=== PATIENT | male | born 1950 | race African-American/Black ===

== ENCOUNTER 2018-12-22 16:23 | Inpatient (IN) ==
[2018-12-22 17:00] LABS: Basophils % 0.2 %; Eosinophils # 0.2 K/mcL (0.0-0.6); Eosinophils % 1.4 %; Hematocrit 36.3 % (37.5-50.1); Hemoglobin 11.5 g/dL (12.9-16.9); Immature Granulocytes % 0.5 % (0-4); Lymphocytes # 1.7 K/mcL (0.6-4.6); Lymphocytes % 14.1 %; Mean Corpuscular HGB Conc 31.7 g/dL (31.6-35.5); Mean Corpuscular Hemoglobin 29.3 pg (28.0-33.3); Mean Corpuscular Volume 92.6 fL (83.0-100.0); Mean Platelet Volume 9.5 fL (9.4-12.4); Monocytes # 0.9 K/mcL (0.0-1.3); Monocytes % 7.9 %; Platelet Count 185 K/mcL (140-400); Red Blood Count 3.92 M/mcL (4.19-5.50); Red Cell Distribution Width 13.6 % (11.5-14.5); Segmented Neutrophils % 75.9 %; White Blood Count 11.9 K/mcL (4.3-11.1)
[2018-12-22 17:08] LABS: Prothrombin Time 11.3 Seconds (9.4-12.1)
[2018-12-22 17:21] LABS: BUN/Creatinine Ratio 24 (6-26); Blood Urea Nitrogen 25 mg/dL (8-23); Carbon Dioxide 26 mEq/L (23-29); Chloride 108 mEq/L (98-107); Glucose 174 mg/dL (70-105); Osmolality,Calculated 291 (280-300); Potassium 5.7 mEq/L (3.5-5.1); Sodium 136 mEq/L (136-145); eGFR For African Americans > 60 (> 60); eGFR For Non-African Americans > 60 (> 60)
[2018-12-22] MEDS ORDERED: Ondansetron 4 MG/2 ML VIAL IVP PRN (17:32)
[2018-12-22] MEDS ORDERED: Naloxone 0.4 MG/ML INJ IVP PRN (17:32)
[2018-12-22] MEDS ORDERED: Acetaminophen 325 MG TABLET PO PRN (17:34)
[2018-12-22] MEDS ORDERED: amLODIPine 5 MG TABLET PO PRN (17:34)
[2018-12-22] MEDS ORDERED: *HR* Dextrose 50 % in Water (Syg) 50 ML SYRINGE IVP PRN (17:35)
[2018-12-22] MEDS ORDERED: D5% in Water 1,000 ML IVC PRN (17:35)
[2018-12-22] MEDS ORDERED: Dextrose Gel 15 GM/37.5 ML TUBE PO PRN ×2 (17:35)
[2018-12-22] MEDS: 0.9 % Sodium Chloride 1,000 ML IVC SCH (19:50)
[2018-12-22] MEDS: Nicotine 21 MG PATCH.TD24 TD SCH (19:51)
[2018-12-22] MEDS: *HR* Heparin 5,000 UNIT/ML VIAL SQ SCH (19:55)
[2018-12-22] MEDS: Sennosides/Docusate Sodium TABLET PO SCH (19:55)
[2018-12-22] MEDS: levETIRAcetam 250 MG TABLET PO SCH (19:56)
[2018-12-22] MEDS: Melatonin 3 MG TABLET PO SCH (20:02)
[2018-12-22] MEDS: Magnesium Oxide 400 MG TABLET PO SCH (20:03)
[2018-12-22] MEDS: Insulin LISPRO 300 UNITS/3 ML VIAL SQ SCH (20:03)
[2018-12-22] MEDS: Insulin DETEMIR 100 UNIT/ML X5UNITS SQ SCH (20:03)
[2018-12-23] MEDS: *HR* Heparin 5,000 UNIT/ML VIAL SQ SCH ×2 (00:53→18:01)
[2018-12-23 07:03] LABS: Basophils % 0.4 %; Eosinophils # 0.3 K/mcL (0.0-0.6); Eosinophils % 2.6 %; Hematocrit 33.6 % (37.5-50.1); Hemoglobin 10.9 g/dL (12.9-16.9); Immature Granulocytes % 0.3 % (0-4); Lymphocytes # 1.1 K/mcL (0.6-4.6); Lymphocytes % 10.5 %; Mean Corpuscular HGB Conc 32.4 g/dL (31.6-35.5); Mean Corpuscular Hemoglobin 29.1 pg (28.0-33.3); Mean Corpuscular Volume 89.8 fL (83.0-100.0); Mean Platelet Volume 9.9 fL (9.4-12.4); Monocytes # 0.8 K/mcL (0.0-1.3); Monocytes % 7.7 %; Neutrophils # 8.5 K/mcL (1.6-8.9); Platelet Count 184 K/mcL (140-400); Red Blood Count 3.74 M/mcL (4.19-5.50); Red Cell Distribution Width 13.6 % (11.5-14.5); Segmented Neutrophils % 78.5 %; White Blood Count 10.8 K/mcL (4.3-11.1)
[2018-12-23 07:19] LABS: BUN/Creatinine Ratio 25 (6-26); Blood Urea Nitrogen 25 mg/dL (8-23); Calcium 9.5 mg/dL (8.6-10.3); Carbon Dioxide 25 mEq/L (23-29); Chloride 106 mEq/L (98-107); Glucose 301 mg/dL (70-105); Magnesium 2.3 mg/dL (1.6-2.6); Osmolality,Calculated 298 (280-300); Sodium 136 mEq/L (136-145); eGFR For African Americans > 60 (> 60); eGFR For Non-African Americans > 60 (> 60)
[2018-12-23 08:57] LABS: Bilirubin,Urine Negative (Negative); Blood,Urine Negative (Negative); Clarity,Urine Clear (Clear); Color,Urine Yellow (Yellow); Glucose,Urine (UA) >=1000 mg/dL (Normal); Ketones,Urine Trace mg/dL (Negative); Leukocyte Esterase,Urine Negative (Negative); Nitrite,Urine Negative (Negative); Protein,Urine Trace mg/dL (Neg-Trace); Specific Gravity,Urine 1.021 (1.010-1.025); Urobilinogen,Urine Normal (Normal)
[2018-12-23] MEDS: levETIRAcetam 250 MG TABLET PO SCH ×2 (08:57→20:06)
[2018-12-23] MEDS: 0.9 % Sodium Chloride 1,000 ML IVC SCH ×2 (08:58→23:40)
[2018-12-23] MEDS: Nicotine 21 MG PATCH.TD24 TD SCH (08:58)
[2018-12-23] MEDS: Insulin LISPRO 300 UNITS/3 ML VIAL SQ SCH ×4 (08:59→23:39)
[2018-12-23] MEDS: Cholecalciferol (D-3) 1,000 UNIT (25MCG) TABLET PO SCH (09:01)
[2018-12-23] MEDS: Latanoprost 2.5 ML BOTTLE BOTH EYES SCH (09:01)
[2018-12-23] MEDS: Aspirin 81 MG TAB.CHEW PO SCH (09:01)
[2018-12-23] MEDS: Magnesium Oxide 400 MG TABLET PO SCH ×2 (09:01→20:06)
[2018-12-23] MEDS: Insulin DETEMIR 100 UNIT/ML X5UNITS SQ SCH ×2 (09:28→23:40)
[2018-12-23] MEDS: Melatonin 3 MG TABLET PO SCH (20:06)
[2018-12-23] MEDS: Sennosides/Docusate Sodium TABLET PO SCH (20:06)
[2018-12-24] MEDS: *HR* Heparin 5,000 UNIT/ML VIAL SQ SCH ×2 (04:22→18:22)
[2018-12-24 05:10] LABS: Basophils # 0.1 K/mcL (0.0-0.2); Basophils % 0.5 %; Eosinophils # 0.5 K/mcL (0.0-0.6); Eosinophils % 4.1 %; Hematocrit 32.4 % (37.5-50.1); Hemoglobin 10.4 g/dL (12.9-16.9); Immature Granulocytes % 0.3 % (0-4); Lymphocytes # 1.9 K/mcL (0.6-4.6); Mean Corpuscular HGB Conc 32.1 g/dL (31.6-35.5); Mean Corpuscular Hemoglobin 28.7 pg (28.0-33.3); Mean Corpuscular Volume 89.3 fL (83.0-100.0); Mean Platelet Volume 9.9 fL (9.4-12.4); Monocytes % 8.4 %; Neutrophils # 8.6 K/mcL (1.6-8.9); Platelet Count 181 K/mcL (140-400); Red Blood Count 3.63 M/mcL (4.19-5.50); Red Cell Distribution Width 13.7 % (11.5-14.5); Segmented Neutrophils % 70.7 %; White Blood Count 12.1 K/mcL (4.3-11.1)
[2018-12-24 05:28] LABS: BUN/Creatinine Ratio 27 (6-26); Blood Urea Nitrogen 22 mg/dL (8-23); Calcium 9.5 mg/dL (8.6-10.3); Carbon Dioxide 23 mEq/L (23-29); Chloride 106 mEq/L (98-107); Glucose 236 mg/dL (70-105); Osmolality,Calculated 295 (280-300); Potassium 4.8 mEq/L (3.5-5.1); Sodium 137 mEq/L (136-145); eGFR For African Americans > 60 (> 60); eGFR For Non-African Americans > 60 (> 60)
[2018-12-24] MEDS ORDERED: Insulin DETEMIR 100 UNIT/ML X5UNITS SQ SCH (09:00)
[2018-12-24] MEDS ORDERED: amLODIPine 5 MG TABLET PO SCH (09:00)
[2018-12-24] MEDS: Insulin LISPRO 300 UNITS/3 ML VIAL SQ SCH ×5 (09:02→20:35)
[2018-12-24] MEDS: levETIRAcetam 250 MG TABLET PO SCH ×2 (09:02→20:36)
[2018-12-24] MEDS: Cholecalciferol (D-3) 1,000 UNIT (25MCG) TABLET PO SCH (09:02)
[2018-12-24] MEDS: Magnesium Oxide 400 MG TABLET PO SCH ×2 (09:02→20:35)
[2018-12-24] MEDS: Latanoprost 2.5 ML BOTTLE BOTH EYES SCH (09:03)
[2018-12-24] MEDS: Insulin DETEMIR 100 UNIT/ML X5UNITS SQ SCH ×2 (09:03→20:34)
[2018-12-24] MEDS: Aspirin 81 MG TAB.CHEW PO SCH (10:14)
[2018-12-24] MEDS ORDERED: *HR* Propofol 200 MG/20 ML VIAL IVP ONE (12:00)
[2018-12-24] MEDS ORDERED: *HR* FentaNYL (PF) 100 MCG/2 ML VIAL ONE ×2 (12:00→13:59)
[2018-12-24] MEDS ORDERED: Insulin LISPRO 300 UNITS/3 ML VIAL SQ SCH (12:00)
[2018-12-24] MEDS ORDERED: *HR* Succinylcholine 200 MG/10 ML VIAL IVP ONE (12:02)
[2018-12-24] MEDS ORDERED: Lidocaine -MPF 2% 2 ML VIAL ONE (12:02)
[2018-12-24] MEDS ORDERED: Lidocaine HCL 4 ML Topical Solution (Laryng-O-Jet Kit Sterile Pak) TP ONE (12:02)
[2018-12-24] MEDS ORDERED: Acetaminophen IV 1,000 MG/100 ML INFUS..BTL ONE (12:19)
[2018-12-24] MEDS ORDERED: Ethanol\\Acetic Acid\\Na Ace\\Ben 1,000 ML IRRIG.SOLN IR ONE (12:19)
[2018-12-24] MEDS ORDERED: EPHEDrine 50 MG/ML VIAL ONE (12:45)
[2018-12-24] MEDS ORDERED: *HR* Rocuronium Bromide 50 MG/5 ML VIAL ONE (12:45)
[2018-12-24] MEDS ORDERED: Ondansetron 4 MG/2 ML VIAL ONE (12:50)
[2018-12-24] MEDS ORDERED: Neostigmine Methylsulfate 3 MG/3 ML SYRINGE ONE (13:52)
[2018-12-24] MEDS ORDERED: Acetaminophen 325 MG TABLET PO PRN (17:10)
[2018-12-24] MEDS ORDERED: amLODIPine 5 MG TABLET PO PRN (17:11)
[2018-12-24] MEDS ORDERED: D5% in Water 1,000 ML IVC PRN (17:15)
[2018-12-24] MEDS ORDERED: 0.9 % Sodium Chloride 1,000 ML IVC SCH (17:15)
[2018-12-24] MEDS ORDERED: Dextrose Gel 15 GM/37.5 ML TUBE PO PRN (17:16)
[2018-12-24] MEDS ORDERED: *HR* Dextrose 50 % in Water (Syg) 50 ML SYRINGE IVP PRN (17:16)
[2018-12-24] MEDS ORDERED: Naloxone 0.4 MG/ML INJ IVP PRN (17:24)
[2018-12-24] MEDS ORDERED: Ondansetron 4 MG/2 ML VIAL IVP PRN (17:25)
[2018-12-24] MEDS: Sennosides/Docusate Sodium TABLET PO SCH (20:35)
[2018-12-24] MEDS: Melatonin 3 MG TABLET PO SCH (20:35)
[2018-12-25 05:56] LABS: Basophils % 0.2 %; Eosinophils # 0.2 K/mcL (0.0-0.6); Hematocrit 28.5 % (37.5-50.1); Hemoglobin 9.3 g/dL (12.9-16.9); Immature Granulocytes % 0.5 % (0-4); Immature Platelets 2.9 % (1.1-6.1); Lymphocytes # 1.1 K/mcL (0.6-4.6); Lymphocytes % 12.4 %; Mean Corpuscular HGB Conc 32.6 g/dL (31.6-35.5); Mean Corpuscular Hemoglobin 28.5 pg (28.0-33.3); Mean Corpuscular Volume 87.4 fL (83.0-100.0); Mean Platelet Volume 10.8 fL (9.4-12.4); Monocytes # 1.3 K/mcL (0.0-1.3); Monocytes % 15.1 %; Neutrophils # 6.1 K/mcL (1.6-8.9); Platelet Count 157 K/mcL (140-400); Red Blood Count 3.26 M/mcL (4.19-5.50); Red Cell Distribution Width 13.6 % (11.5-14.5); Segmented Neutrophils % 69.8 %; White Blood Count 8.7 K/mcL (4.3-11.1)
[2018-12-25] MEDS: *HR* Heparin 5,000 UNIT/ML VIAL SQ SCH ×2 (06:08→17:49)
[2018-12-25 06:09] LABS: BUN/Creatinine Ratio 19 (6-26); Blood Urea Nitrogen 15 mg/dL (8-23); Carbon Dioxide 23 mEq/L (23-29); Chloride 103 mEq/L (98-107); Glucose 156 mg/dL (70-105); Osmolality,Calculated 278 (280-300); Potassium 4.5 mEq/L (3.5-5.1); Sodium 132 mEq/L (136-145); eGFR For African Americans > 60 (> 60); eGFR For Non-African Americans > 60 (> 60)
[2018-12-25] MEDS: levETIRAcetam 250 MG TABLET PO SCH ×2 (08:13→20:39)
[2018-12-25] MEDS: Cholecalciferol (D-3) 1,000 UNIT (25MCG) TABLET PO SCH (08:14)
[2018-12-25] MEDS: Magnesium Oxide 400 MG TABLET PO SCH ×2 (08:14→20:39)
[2018-12-25] MEDS: Aspirin 81 MG TAB.CHEW PO SCH (08:14)
[2018-12-25] MEDS: amLODIPine 5 MG TABLET PO SCH (08:14)
[2018-12-25] MEDS: Nicotine 21 MG PATCH.TD24 TD SCH (08:14)
[2018-12-25] MEDS: Insulin LISPRO 300 UNITS/3 ML VIAL SQ SCH ×7 (08:16→20:39)
[2018-12-25] MEDS: Insulin DETEMIR 100 UNIT/ML X5UNITS SQ SCH ×2 (08:27→20:39)
[2018-12-25] MEDS: Sennosides/Docusate Sodium TABLET PO SCH (20:38)
[2018-12-25] MEDS: Melatonin 3 MG TABLET PO SCH (20:38)
[2018-12-26 04:47] LABS: Basophils % 0.2 %; Eosinophils # 0.1 K/mcL (0.0-0.6); Eosinophils % 1.1 %; Hematocrit 23.8 % (37.5-50.1); Hemoglobin 8.1 g/dL (12.9-16.9); Immature Granulocytes % 0.5 % (0-4); Lymphocytes % 10.9 %; Mean Corpuscular Hemoglobin 30.2 pg (28.0-33.3); Mean Corpuscular Volume 88.8 fL (83.0-100.0); Mean Platelet Volume 9.9 fL (9.4-12.4); Monocytes # 1.6 K/mcL (0.0-1.3); Monocytes % 18.3 %; Neutrophils # 6.1 K/mcL (1.6-8.9); Platelet Count 162 K/mcL (140-400); Red Blood Count 2.68 M/mcL (4.19-5.50); Red Cell Distribution Width 13.9 % (11.5-14.5); White Blood Count 8.9 K/mcL (4.3-11.1)
[2018-12-26 05:08] LABS: BUN/Creatinine Ratio 26 (6-26); Blood Urea Nitrogen 25 mg/dL (8-23); Calcium 8.9 mg/dL (8.6-10.3); Carbon Dioxide 25 mEq/L (23-29); Chloride 101 mEq/L (98-107); Glucose 169 mg/dL (70-105); Osmolality,Calculated 288 (280-300); Potassium 4.1 mEq/L (3.5-5.1); Sodium 135 mEq/L (136-145); eGFR For African Americans > 60 (> 60); eGFR For Non-African Americans > 60 (> 60)
[2018-12-26 05:56] LABS: Platelet Estimate Normal (Normal)
[2018-12-26] MEDS: *HR* Heparin 5,000 UNIT/ML VIAL SQ SCH ×2 (06:13→17:37)
[2018-12-26] MEDS: Insulin LISPRO 300 UNITS/3 ML VIAL SQ SCH ×7 (08:20→22:40)
[2018-12-26] MEDS: Cholecalciferol (D-3) 1,000 UNIT (25MCG) TABLET PO SCH (08:23)
[2018-12-26] MEDS: levETIRAcetam 250 MG TABLET PO SCH ×2 (08:23→22:40)
[2018-12-26] MEDS: Lisinopril 20 MG TABLET PO SCH (08:23)
[2018-12-26] MEDS: Aspirin 81 MG TAB.CHEW PO SCH (08:23)
[2018-12-26] MEDS: Magnesium Oxide 400 MG TABLET PO SCH ×2 (08:23→22:40)
[2018-12-26] MEDS: Nicotine 21 MG PATCH.TD24 TD SCH (08:24)
[2018-12-26] MEDS: amLODIPine 5 MG TABLET PO SCH (08:24)
[2018-12-26] MEDS: Insulin DETEMIR 100 UNIT/ML X5UNITS SQ SCH ×2 (09:17→22:40)
[2018-12-26] MEDS: 0.9 % Sodium Chloride 1,000 ML IVC SCH (11:15)
[2018-12-26] MEDS ORDERED: Ipratropium/Albuterol Neb 3 ML ONE (18:14)
[2018-12-26] MEDS: Ipratropium/Albuterol Neb 3 ML IH SCH (18:25)
[2018-12-26] MEDS: Sennosides/Docusate Sodium TABLET PO SCH (22:40)
[2018-12-26] MEDS: Melatonin 3 MG TABLET PO SCH (22:40)
[2018-12-27 01:38] LABS: Basophils % 0.3 %; Eosinophils # 0.2 K/mcL (0.0-0.6); Eosinophils % 1.8 %; Hematocrit 24.1 % (37.5-50.1); Hemoglobin 7.6 g/dL (12.9-16.9); Immature Granulocytes % 0.5 % (0-4); Lymphocytes # 1.1 K/mcL (0.6-4.6); Lymphocytes % 11.1 %; Mean Corpuscular HGB Conc 31.5 g/dL (31.6-35.5); Mean Platelet Volume 9.6 fL (9.4-12.4); Monocytes # 1.5 K/mcL (0.0-1.3); Monocytes % 15.2 %; Neutrophils # 7.2 K/mcL (1.6-8.9); Platelet Count 209 K/mcL (140-400); Red Blood Count 2.62 M/mcL (4.19-5.50); Red Cell Distribution Width 14.2 % (11.5-14.5); Segmented Neutrophils % 71.1 %; White Blood Count 10.1 K/mcL (4.3-11.1)
[2018-12-27 01:57] LABS: BUN/Creatinine Ratio 43 (6-26); Blood Urea Nitrogen 39 mg/dL (8-23); Calcium 8.6 mg/dL (8.6-10.3); Carbon Dioxide 23 mEq/L (23-29); Chloride 107 mEq/L (98-107); Glucose 152 mg/dL (70-105); Osmolality,Calculated 294 (280-300); Potassium 4.3 mEq/L (3.5-5.1); Sodium 136 mEq/L (136-145); eGFR For African Americans > 60 (> 60); eGFR For Non-African Americans > 60 (> 60)
[2018-12-27] MEDS: Ipratropium/Albuterol Neb 3 ML IH SCH ×4 (04:15→22:25)
[2018-12-27] MEDS: *HR* Heparin 5,000 UNIT/ML VIAL SQ SCH ×2 (06:36→17:24)
[2018-12-27] MEDS: 0.9 % Sodium Chloride 1,000 ML IVC SCH (06:37)
[2018-12-27] MEDS: Insulin LISPRO 300 UNITS/3 ML VIAL SQ SCH ×7 (08:37→22:10)
[2018-12-27] MEDS: Insulin DETEMIR 100 UNIT/ML X5UNITS SQ SCH ×2 (08:38→22:09)
[2018-12-27] MEDS: Magnesium Oxide 400 MG TABLET PO SCH ×2 (08:39→22:09)
[2018-12-27] MEDS: levETIRAcetam 250 MG TABLET PO SCH ×2 (08:39→22:08)
[2018-12-27] MEDS: Lisinopril 20 MG TABLET PO SCH (08:39)
[2018-12-27] MEDS: Cholecalciferol (D-3) 1,000 UNIT (25MCG) TABLET PO SCH (08:39)
[2018-12-27] MEDS: Aspirin 81 MG TAB.CHEW PO SCH (08:39)
[2018-12-27] MEDS: amLODIPine 5 MG TABLET PO SCH (08:39)
[2018-12-27] MEDS: Nicotine 21 MG PATCH.TD24 TD SCH (08:39)
[2018-12-27] MEDS ORDERED: 0.9 % Sodium Chloride 250 ML ONE (11:38)
[2018-12-27] MEDS: Sennosides/Docusate Sodium TABLET PO SCH (22:08)
[2018-12-27] MEDS: Melatonin 3 MG TABLET PO SCH (22:09)
[2018-12-28] MEDS: Ipratropium/Albuterol Neb 3 ML IH SCH ×4 (04:29→21:58)
[2018-12-28 07:18] LABS: Hematocrit 24.8 % (37.5-50.1); Hemoglobin 8.1 g/dL (12.9-16.9); Mean Corpuscular HGB Conc 32.7 g/dL (31.6-35.5); Mean Corpuscular Hemoglobin 29.5 pg (28.0-33.3); Mean Corpuscular Volume 90.2 fL (83.0-100.0); Mean Platelet Volume 9.6 fL (9.4-12.4); Platelet Count 234 K/mcL (140-400); Red Blood Count 2.75 M/mcL (4.19-5.50); Red Cell Distribution Width 14.2 % (11.5-14.5); White Blood Count 7.3 K/mcL (4.3-11.1)
[2018-12-28 07:34] LABS: BUN/Creatinine Ratio 34 (6-26); Blood Urea Nitrogen 29 mg/dL (8-23); Calcium 8.6 mg/dL (8.6-10.3); Carbon Dioxide 24 mEq/L (23-29); Chloride 106 mEq/L (98-107); Glucose 175 mg/dL (70-105); Osmolality,Calculated 288 (280-300); Potassium 4.4 mEq/L (3.5-5.1); Sodium 134 mEq/L (136-145); eGFR For African Americans > 60 (> 60); eGFR For Non-African Americans > 60 (> 60)
[2018-12-28] MEDS: *HR* Heparin 5,000 UNIT/ML VIAL SQ SCH ×2 (08:41→17:12)
[2018-12-28] MEDS: Cholecalciferol (D-3) 1,000 UNIT (25MCG) TABLET PO SCH (08:43)
[2018-12-28] MEDS: Aspirin 81 MG TAB.CHEW PO SCH (08:43)
[2018-12-28] MEDS: Magnesium Oxide 400 MG TABLET PO SCH ×2 (08:43→20:40)
[2018-12-28] MEDS: amLODIPine 5 MG TABLET PO SCH (08:44)
[2018-12-28] MEDS: Insulin LISPRO 300 UNITS/3 ML VIAL SQ SCH ×7 (08:44→20:43)
[2018-12-28] MEDS: Nicotine 21 MG PATCH.TD24 TD SCH (08:44)
[2018-12-28] MEDS: levETIRAcetam 250 MG TABLET PO SCH ×2 (08:44→20:39)
[2018-12-28] MEDS: Lisinopril 20 MG TABLET PO SCH (08:44)
[2018-12-28] MEDS: Insulin DETEMIR 100 UNIT/ML X5UNITS SQ SCH ×2 (08:46→20:39)
[2018-12-28] MEDS: Azithromycin 250 MG TABLET PO SCH (12:12)
[2018-12-28] MEDS: Sennosides/Docusate Sodium TABLET PO SCH (20:39)
[2018-12-28] MEDS: Melatonin 3 MG TABLET PO SCH (20:40)
[2018-12-29] MEDS: Ipratropium/Albuterol Neb 3 ML IH SCH ×4 (04:36→23:00)
[2018-12-29 05:14] LABS: Adenovirus Not Detected (Not Detect); Bordetella Pertussis Not Detected (Not Detect); Chlamydophila pneumoniae Not Detected (Not Detect); Coronavirus 229E Not Detected (Not Detect); Coronavirus HKU1 Not Detected (Not Detect); Coronavirus NL63 Not Detected (Not Detect); Coronavirus OC43 Not Detected (Not Detect); Human Metapneumovirus Not Detected (Not Detect); Human Rhinovirus/Enterovirus Not Detected (Not Detect); Influenza A Subtype 2009 H1 Not Detected (Not Detect); Influenza A Untypeable Not Detected (Not Detect); Influenza B Not Detected (Not Detect); Mycoplasma pneumoniae Not Detected (Not Detect); Parainfluenza Virus 1 Not Detected (Not Detect); Parainfluenza Virus 2 Not Detected (Not Detect); Parainfluenza Virus 3 Not Detected (Not Detect); Parainfluenza Virus 4 Not Detected (Not Detect); Respiratory Syncytial Virus Not Detected (Not Detect)
[2018-12-29] MEDS: *HR* Heparin 5,000 UNIT/ML VIAL SQ SCH ×2 (05:30→18:55)
[2018-12-29] MEDS: levETIRAcetam 250 MG TABLET PO SCH ×2 (09:27→21:39)
[2018-12-29] MEDS: Cholecalciferol (D-3) 1,000 UNIT (25MCG) TABLET PO SCH (09:27)
[2018-12-29] MEDS: amLODIPine 5 MG TABLET PO SCH (09:27)
[2018-12-29] MEDS: Aspirin 81 MG TAB.CHEW PO SCH (09:27)
[2018-12-29] MEDS: Lisinopril 20 MG TABLET PO SCH (09:27)
[2018-12-29] MEDS: Magnesium Oxide 400 MG TABLET PO SCH ×2 (09:28→21:40)
[2018-12-29] MEDS: Azithromycin 250 MG TABLET PO SCH (09:28)
[2018-12-29] MEDS: Nicotine 21 MG PATCH.TD24 TD SCH (09:28)
[2018-12-29] MEDS: Insulin LISPRO 300 UNITS/3 ML VIAL SQ SCH ×7 (09:38→21:42)
[2018-12-29] MEDS: Insulin DETEMIR 100 UNIT/ML X5UNITS SQ SCH ×2 (09:39→21:45)
[2018-12-29 10:43] LABS: Basophils % 0.4 %; Eosinophils # 0.4 K/mcL (0.0-0.6); Eosinophils % 4.6 %; Hematocrit 25.2 % (37.5-50.1); Hemoglobin 8.2 g/dL (12.9-16.9); Immature Granulocytes % 1.3 % (0-4); Lymphocytes # 1.4 K/mcL (0.6-4.6); Lymphocytes % 16.1 %; Mean Corpuscular HGB Conc 32.5 g/dL (31.6-35.5); Mean Corpuscular Hemoglobin 29.3 pg (28.0-33.3); Mean Platelet Volume 9.2 fL (9.4-12.4); Monocytes # 1.4 K/mcL (0.0-1.3); Monocytes % 15.3 %; Neutrophils # 5.5 K/mcL (1.6-8.9); Platelet Count 285 K/mcL (140-400); Red Cell Distribution Width 14.3 % (11.5-14.5); Segmented Neutrophils % 62.3 %; White Blood Count 8.9 K/mcL (4.3-11.1)
[2018-12-29 11:03] LABS: BUN/Creatinine Ratio 36 (6-26); Blood Urea Nitrogen 37 mg/dL (8-23); Calcium 8.7 mg/dL (8.6-10.3); Carbon Dioxide 25 mEq/L (23-29); Chloride 103 mEq/L (98-107); Glucose 256 mg/dL (70-105); Osmolality,Calculated 291 (280-300); Potassium 4.2 mEq/L (3.5-5.1); Sodium 132 mEq/L (136-145); eGFR For African Americans > 60 (> 60); eGFR For Non-African Americans > 60 (> 60)
[2018-12-29] MEDS: Melatonin 3 MG TABLET PO SCH (21:40)
[2018-12-29] MEDS: Sennosides/Docusate Sodium TABLET PO SCH (21:40)
[2018-12-30] MEDS: Ipratropium/Albuterol Neb 3 ML IH SCH ×4 (03:13→22:46)
[2018-12-30 05:07] LABS: BUN/Creatinine Ratio 42 (6-26); Blood Urea Nitrogen 37 mg/dL (8-23); Calcium 9.2 mg/dL (8.6-10.3); Carbon Dioxide 25 mEq/L (23-29); Chloride 105 mEq/L (98-107); Glucose 116 mg/dL (70-105); Osmolality,Calculated 284 (280-300); Potassium 3.8 mEq/L (3.5-5.1); Sodium 132 mEq/L (136-145); eGFR For African Americans > 60 (> 60); eGFR For Non-African Americans > 60 (> 60)
[2018-12-30 05:44] LABS: Hematocrit 26.1 % (37.5-50.1); Hemoglobin 8.6 g/dL (12.9-16.9); Mean Corpuscular Hemoglobin 29.3 pg (28.0-33.3); Mean Corpuscular Volume 88.8 fL (83.0-100.0); Mean Platelet Volume 8.9 fL (9.4-12.4); Platelet Count 298 K/mcL (140-400); Red Blood Count 2.94 M/mcL (4.19-5.50); Red Cell Distribution Width 14.3 % (11.5-14.5); White Blood Count 9.7 K/mcL (4.3-11.1)
[2018-12-30] MEDS: *HR* Heparin 5,000 UNIT/ML VIAL SQ SCH ×2 (05:48→17:15)
[2018-12-30] MEDS: Insulin LISPRO 300 UNITS/3 ML VIAL SQ SCH ×7 (07:51→22:53)
[2018-12-30] MEDS: Cholecalciferol (D-3) 1,000 UNIT (25MCG) TABLET PO SCH (08:39)
[2018-12-30] MEDS: Magnesium Oxide 400 MG TABLET PO SCH ×2 (08:39→22:46)
[2018-12-30] MEDS: Nicotine 21 MG PATCH.TD24 TD SCH (08:39)
[2018-12-30] MEDS: levETIRAcetam 250 MG TABLET PO SCH ×2 (08:39→22:45)
[2018-12-30] MEDS: Azithromycin 250 MG TABLET PO SCH (08:40)
[2018-12-30] MEDS: Aspirin 81 MG TAB.CHEW PO SCH (08:40)
[2018-12-30] MEDS: amLODIPine 5 MG TABLET PO SCH (08:40)
[2018-12-30] MEDS: Lisinopril 20 MG TABLET PO SCH (08:40)
[2018-12-30] MEDS: Insulin DETEMIR 100 UNIT/ML X5UNITS SQ SCH ×2 (08:44→22:54)
[2018-12-30] MEDS: Sennosides/Docusate Sodium TABLET PO SCH (22:46)
[2018-12-30] MEDS: Melatonin 3 MG TABLET PO SCH (22:46)
[2018-12-31] MEDS: Ipratropium/Albuterol Neb 3 ML IH SCH ×4 (04:37→21:38)
[2018-12-31] MEDS: *HR* Heparin 5,000 UNIT/ML VIAL SQ SCH ×2 (05:19→19:09)
[2018-12-31 05:58] LABS: BUN/Creatinine Ratio 36 (6-26); Blood Urea Nitrogen 30 mg/dL (8-23); Calcium 9.2 mg/dL (8.6-10.3); Carbon Dioxide 24 mEq/L (23-29); Chloride 105 mEq/L (98-107); Glucose 187 mg/dL (70-105); Hematocrit 24.8 % (37.5-50.1); Mean Corpuscular HGB Conc 32.3 g/dL (31.6-35.5); Mean Corpuscular Hemoglobin 29.1 pg (28.0-33.3); Mean Corpuscular Volume 90.2 fL (83.0-100.0); Mean Platelet Volume 9.3 fL (9.4-12.4); Osmolality,Calculated 289 (280-300); Platelet Count 384 K/mcL (140-400); Potassium 4.3 mEq/L (3.5-5.1); Red Blood Count 2.75 M/mcL (4.19-5.50); Red Cell Distribution Width 14.5 % (11.5-14.5); Sodium 134 mEq/L (136-145); eGFR For African Americans > 60 (> 60); eGFR For Non-African Americans > 60 (> 60)
[2018-12-31] MEDS: Azithromycin 250 MG TABLET PO SCH (08:47)
[2018-12-31] MEDS: Lisinopril 20 MG TABLET PO SCH (08:47)
[2018-12-31] MEDS: levETIRAcetam 250 MG TABLET PO SCH ×2 (08:47→20:15)
[2018-12-31] MEDS: amLODIPine 5 MG TABLET PO SCH (08:47)
[2018-12-31] MEDS: Cholecalciferol (D-3) 1,000 UNIT (25MCG) TABLET PO SCH (08:47)
[2018-12-31] MEDS: Magnesium Oxide 400 MG TABLET PO SCH ×2 (08:47→20:14)
[2018-12-31] MEDS: Insulin DETEMIR 100 UNIT/ML X5UNITS SQ SCH ×2 (08:48→20:17)
[2018-12-31] MEDS: Insulin LISPRO 300 UNITS/3 ML VIAL SQ SCH ×7 (09:19→20:17)
[2018-12-31] MEDS: Aspirin 81 MG TAB.CHEW PO SCH (12:54)
[2018-12-31] MEDS: Nicotine 21 MG PATCH.TD24 TD SCH (13:12)
[2018-12-31] MEDS ORDERED: SODIUM CHLORIDE/NAHCO3/KCL/PEG 4,000 ML SOLN.RECON PO ONE (17:00)
[2018-12-31] MEDS: Melatonin 3 MG TABLET PO SCH (20:15)
[2018-12-31] MEDS: Sennosides/Docusate Sodium TABLET PO SCH (20:17)
[2019-01-01] MEDS: Ipratropium/Albuterol Neb 3 ML IH SCH ×4 (03:25→22:03)
[2019-01-01] MEDS: *HR* Heparin 5,000 UNIT/ML VIAL SQ SCH ×2 (04:42→18:29)
[2019-01-01 05:34] LABS: Hematocrit 23.1 % (37.5-50.1); Hemoglobin 7.7 g/dL (12.9-16.9); Mean Corpuscular HGB Conc 33.3 g/dL (31.6-35.5); Mean Corpuscular Hemoglobin 29.4 pg (28.0-33.3); Mean Corpuscular Volume 88.2 fL (83.0-100.0); Mean Platelet Volume 8.7 fL (9.4-12.4); Platelet Count 423 K/mcL (140-400); Red Blood Count 2.62 M/mcL (4.19-5.50); Red Cell Distribution Width 14.6 % (11.5-14.5); White Blood Count 10.3 K/mcL (4.3-11.1)
[2019-01-01 05:53] LABS: BUN/Creatinine Ratio 28 (6-26); Blood Urea Nitrogen 24 mg/dL (8-23); Calcium 9.1 mg/dL (8.6-10.3); Carbon Dioxide 24 mEq/L (23-29); Chloride 106 mEq/L (98-107); Glucose 179 mg/dL (70-105); Osmolality,Calculated 293 (280-300); Potassium 4.5 mEq/L (3.5-5.1); Sodium 137 mEq/L (136-145); eGFR For African Americans > 60 (> 60); eGFR For Non-African Americans > 60 (> 60)
[2019-01-01] MEDS: Insulin LISPRO 300 UNITS/3 ML VIAL SQ SCH ×7 (08:56→21:48)
[2019-01-01] MEDS: Cholecalciferol (D-3) 1,000 UNIT (25MCG) TABLET PO SCH (09:20)
[2019-01-01] MEDS: Lisinopril 20 MG TABLET PO SCH (09:20)
[2019-01-01] MEDS: Magnesium Oxide 400 MG TABLET PO SCH ×2 (09:20→21:43)
[2019-01-01] MEDS: amLODIPine 5 MG TABLET PO SCH (09:20)
[2019-01-01] MEDS: Aspirin 81 MG TAB.CHEW PO SCH (09:21)
[2019-01-01] MEDS: Insulin DETEMIR 100 UNIT/ML X5UNITS SQ SCH ×2 (10:12→21:48)
[2019-01-01] MEDS: levETIRAcetam 250 MG TABLET PO SCH ×2 (10:13→21:43)
[2019-01-01] MEDS: Nicotine 21 MG PATCH.TD24 TD SCH (10:13)
[2019-01-01] MEDS: Azithromycin 250 MG TABLET PO SCH (10:13)
[2019-01-01] MEDS ORDERED: Propofol 500 MG/50 ML INFUS..BTL ONE (13:03)
[2019-01-01] MEDS ORDERED: Lidocaine -MPF 2% 2 ML VIAL ONE (13:03)
[2019-01-01] MEDS: Sennosides/Docusate Sodium TABLET PO SCH (21:43)
[2019-01-01] MEDS: Melatonin 3 MG TABLET PO SCH (21:44)
[2019-01-02] MEDS: Ipratropium/Albuterol Neb 3 ML IH SCH ×4 (03:47→22:03)
[2019-01-02 05:40] LABS: Hematocrit 26.4 % (37.5-50.1); Hemoglobin 8.5 g/dL (12.9-16.9); Mean Corpuscular HGB Conc 32.2 g/dL (31.6-35.5); Mean Corpuscular Hemoglobin 28.9 pg (28.0-33.3); Mean Corpuscular Volume 89.8 fL (83.0-100.0); Mean Platelet Volume 8.7 fL (9.4-12.4); Platelet Count 451 K/mcL (140-400); Red Blood Count 2.94 M/mcL (4.19-5.50); Red Cell Distribution Width 14.7 % (11.5-14.5); White Blood Count 11.3 K/mcL (4.3-11.1)
[2019-01-02] MEDS: *HR* Heparin 5,000 UNIT/ML VIAL SQ SCH ×2 (05:54→18:05)
[2019-01-02 06:04] LABS: BUN/Creatinine Ratio 25 (6-26); Blood Urea Nitrogen 19 mg/dL (8-23); Calcium 9.7 mg/dL (8.6-10.3); Carbon Dioxide 27 mEq/L (23-29); Chloride 105 mEq/L (98-107); Glucose 113 mg/dL (70-105); Osmolality,Calculated 295 (280-300); Potassium 4.7 mEq/L (3.5-5.1); Sodium 141 mEq/L (136-145); eGFR For African Americans > 60 (> 60); eGFR For Non-African Americans > 60 (> 60)
[2019-01-02] MEDS: Insulin LISPRO 300 UNITS/3 ML VIAL SQ SCH ×7 (08:51→19:59)
[2019-01-02] MEDS: Magnesium Oxide 400 MG TABLET PO SCH ×2 (09:12→19:57)
[2019-01-02] MEDS: Azithromycin 250 MG TABLET PO SCH (09:12)
[2019-01-02] MEDS: Aspirin 81 MG TAB.CHEW PO SCH (09:12)
[2019-01-02] MEDS: Insulin DETEMIR 100 UNIT/ML X5UNITS SQ SCH ×2 (09:12→19:57)
[2019-01-02] MEDS: Lisinopril 20 MG TABLET PO SCH (09:13)
[2019-01-02] MEDS: Nicotine 21 MG PATCH.TD24 TD SCH (09:13)
[2019-01-02] MEDS: Cholecalciferol (D-3) 1,000 UNIT (25MCG) TABLET PO SCH (09:13)
[2019-01-02] MEDS: levETIRAcetam 250 MG TABLET PO SCH ×2 (09:13→19:57)
[2019-01-02] MEDS: amLODIPine 5 MG TABLET PO SCH (09:14)
[2019-01-02] MEDS: Sennosides/Docusate Sodium TABLET PO SCH (19:56)
[2019-01-02] MEDS: Melatonin 3 MG TABLET PO SCH (19:57)
[2019-01-03] MEDS: Ipratropium/Albuterol Neb 3 ML IH SCH ×2 (03:55→09:51)
[2019-01-03 05:26] LABS: Hematocrit 27.9 % (37.5-50.1); Hemoglobin 8.8 g/dL (12.9-16.9); Mean Corpuscular HGB Conc 31.5 g/dL (31.6-35.5); Mean Corpuscular Volume 92.1 fL (83.0-100.0); Mean Platelet Volume 8.7 fL (9.4-12.4); Platelet Count 502 K/mcL (140-400); Red Blood Count 3.03 M/mcL (4.19-5.50); Red Cell Distribution Width 14.6 % (11.5-14.5); White Blood Count 11.3 K/mcL (4.3-11.1)
[2019-01-03] MEDS: *HR* Heparin 5,000 UNIT/ML VIAL SQ SCH (05:40)
[2019-01-03 07:19] VITALS: BP 146/79
[2019-01-03] MEDS: Insulin LISPRO 300 UNITS/3 ML VIAL SQ SCH ×4 (08:04→12:02)
[2019-01-03] MEDS: levETIRAcetam 250 MG TABLET PO SCH (08:18)
[2019-01-03] MEDS: Lisinopril 20 MG TABLET PO SCH (08:18)
[2019-01-03] MEDS: Nicotine 21 MG PATCH.TD24 TD SCH (08:18)
[2019-01-03] MEDS: Insulin DETEMIR 100 UNIT/ML X5UNITS SQ SCH (08:18)
[2019-01-03] MEDS: Magnesium Oxide 400 MG TABLET PO SCH (08:19)
[2019-01-03] MEDS: Aspirin 81 MG TAB.CHEW PO SCH (08:19)
[2019-01-03] MEDS: Cholecalciferol (D-3) 1,000 UNIT (25MCG) TABLET PO SCH (08:19)
[2019-01-03] MEDS: amLODIPine 5 MG TABLET PO SCH (08:19)
[2019-01-03] MEDS ORDERED: Ipratropium/Albuterol Neb 3 ML IH PRN (11:16)
== END 2019-01-03 12:53 | disposition home or self-care (01) | DRG 469 ==
LOC: 3NENU 16:23 → EMEROOARM 16:23 → SUATTDRO 17:42 → 3NENU 17:58 → SUATTDRO 18:02 → 3NENU 12-23 23:12
PROVIDERS: ADMIT Pharmacist; ATTEND Internal Medicine
PROC: ENDOEBX (2019-01-01 13:00)